=== PATIENT | male | born 1980 | race Caucasian/White ===

== ENCOUNTER 2023-04-07 07:36 | Emergency (ER) | payer BC ==
[~2023-04-07] VITALS: Ht 185.4 cm; Wt 151.5 kg
[2023-04-07 08:02] LABS: MEAN CORPUSCULAR HEMOGLOBIN 27.5 pg (27.0-33.0); MEAN CORPUSCULAR HGB CONC 32.4 g/dL (32.0-36.0); MEAN CORPUSCULAR VOLUME 84.9 fL (79-99); RED BLOOD CELL COUNT(AUTO) 5.42 MIL/uL (4.50-6.20); RED CELL DISTRIBUTION WIDTH 13.1 % (11.0-15.5); WHITE BLOOD COUNT (AUTO) 8.4 K/uL (4.8-10.8)
[2023-04-07 08:13] LABS: CREATININE 0.9 mg/dL (0.5-1.5)
[2023-04-07 08:28] VITALS: RESP 16
[2023-04-07] MEDS ORDERED: LACTATED RINGERS 1000ML 1,000 ML IV ONE (08:30)
[2023-04-07 09:37] LABS: ALBUMIN 3.5 g/dL (3.5-5.0); BILIRUBIN,DIRECT 0.1 mg/dL (0.0-0.3); BILIRUBIN,TOTAL 0.1 mg/dL (0.2-1.0)
[2023-04-07 10:21] VITALS: BP 178/76; PULSE 63; O2SAT 99
== END 2023-04-07 10:28 | disposition home or self-care (01) ==
LOC: EDH 07:36
DX: K80.20 Calculus of gallbladder without cholecystitis without obstruction (principal); K80.50 Calculus of bile duct without cholangitis or cholecystitis without obstruction; K76.0 Fatty (change of) liver, not elsewhere classified
CPT/HCPCS: 99284; 96360; 76705; 71045; 80076; 84484; 80048; 83690; 85027; 36415; 93005; J7030